=== PATIENT | female | born 1990 | race Two or more races ===

== ENCOUNTER 2024-06-05 19:27 | Emergency (ER) | payer OTHER ==
[~2024-06-05] VITALS: Ht 157.5 cm; Wt 77.6 kg
[2024-06-05] MEDS ORDERED: PRENA1 CHEW TA1.4 MG PO (19:42)
[2024-06-05] MEDS ORDERED: CHILDREN'S ASPI81 MG PO (19:42)
== END 2024-06-05 20:51 | disposition home or self-care (01) ==
LOC: ER 19:27
DX: O20.8 Other hemorrhage in early pregnancy (principal); Z3A.12 12 weeks gestation of pregnancy

== ENCOUNTER 2024-06-09 18:58 | Emergency (ER) | payer OTHER ==
[~2024-06-09] VITALS: Ht 157.5 cm; Wt 77.6 kg
[~2024-06-09 18:58] MED LIST: CHILDREN'S ASPI81 MG PO; PRENA1 CHEW TA1.4 MG PO
[2024-06-09 19:55] LABS: HEMATOCRIT 33.8 % (36.0-45.00); HEMOGLOBIN 11.7 g/dL (12.0-15.00); MEAN CELL VOLUME 85.7 fL (80.00-100.00); MEAN CORPUSCULAR HEMOGLOBIN 29.8 pg (27.00-32.0); MEAN CORPUSCULAR HGB CONC 34.7 g/dl (32.0-36.0); PLATELET COUNT 316 K/uL (150-450); RED BLOOD COUNT 3.94 M/uL (4.00-6.00); RED CELL DISTRIBUTION WIDTH 13.8 % (11.5-14.5)
[2024-06-09 21:09] LABS: URINE APPEARANCE Clear; URINE BILIRRUBIN Negative (NEGATIVE); URINE BLOOD Large; URINE COLOR Yellow; URINE GLUCOSE Negative (NEGATIVE); URINE KETONE Negative (NEGATIVE); URINE LEUKOCYTE Moderate; URINE NITRATE Negative; URINE PROTEIN Negative (NEGATIVE); URINE UROBILINOGEN 0.2 E.U./dl
[2024-06-09 21:13] LABS: URINE BACTERIA 1114.9 uL (0.0-1933); URINE EPITHELIAL CELLS 26.7 uL (0.0-38.8); URINE RBC 2.1 uL (0.0-20.8); URINE WBC 183.6 uL (0.0-23.2)
== END 2024-06-09 21:45 | disposition home or self-care (01) ==
LOC: ER 18:58
PROVIDERS: General Practice
DX: O20.8 Other hemorrhage in early pregnancy (principal); Z3A.13 13 weeks gestation of pregnancy

== ENCOUNTER 2024-07-01 08:31 | Inpatient (IN) | payer OTHER ==
[~2024-07-01] VITALS: Ht 157.5 cm; Wt 77.6 kg
[~2024-07-01 08:31] MED LIST changes: -PROMETRIUM200 MG VAG; -TYLENOL EXTRA500 MG PO; -TYLENOL325 MG PO
[2024-07-01 08:39] VITALS: BP 109/74
[2024-07-01] MEDS ORDERED: MAGNESIUM SULFATE IN WATER 4 GM/100 ML PIGGYBACK IV ONE (09:09)
[2024-07-01] MEDS ORDERED: MAGNESIUM SULFATE IN WATER 0.04 GM/ML IV.SOLN IV ONE (09:10)
[2024-07-01] MEDS ORDERED: CEFOXITIN SODIUM 2,000 MG VIAL IV ONE (09:11)
[2024-07-01 09:27] LABS: HEMATOCRIT 32.7 % (36.0-45.00); HEMOGLOBIN 11.2 g/dL (12.0-15.00); MEAN CELL VOLUME 84.6 fL (80.00-100.00); MEAN CORPUSCULAR HEMOGLOBIN 29.1 pg (27.00-32.0); MEAN CORPUSCULAR HGB CONC 34.4 g/dl (32.0-36.0); PLATELET COUNT 382 K/uL (150-450); RED BLOOD COUNT 3.86 M/uL (4.00-6.00); RED CELL DISTRIBUTION WIDTH 13.7 % (11.5-14.5)
[2024-07-01] MEDS ORDERED: PROMETRIUM200 MG VAG (09:32)
[2024-07-01] MEDS ORDERED: TYLENOL325 MG PO (09:33)
[2024-07-01] MEDS ORDERED: TYLENOL EXTRA500 MG PO (09:35)
[2024-07-01] MEDS ORDERED: CEFOXITIN SODIUM 2,000 MG VIAL IV SCH (09:41)
[2024-07-01] MEDS ORDERED: RINGERS SOLUTION,LACTATED 1,000 ML IV SCH (09:45)
[2024-07-01] MEDS ORDERED: MAGNESIUM SULFATE IN WATER 500 ML IV SCH (09:45)
[2024-07-01] MEDS ORDERED: MAGNESIUM SULFATE IN WATER 100 ML IV SCH (09:45)
[2024-07-01 10:09] LABS: INR 0.99; PARTIAL THROMBOPLASTIN TIME 27.6 SECONDS (22.0-34.0); PROTHROMBIN TIME 10.8 SECONDS (9.0-11.5)
[2024-07-01 10:20] LABS: ALBUMIN 2.8 gm/dL (3.4-5.0); BILIRUBIN TOTAL 0.27 mg/dL (0.3-1.2); CALCIUM 8.9 mg/dL (8.5-10.1); CREATININE SERUM 0.44 mg/dL (0.55-1.02); GFR 163.68; GLOBULINA 4.3 G/DL (2.4-3.5); POTASSIUM 4.26 mEq/L (3.5-5.1); TOTAL PROTEIN 7.1 gm/dL (6.4-8.2)
[2024-07-01 11:45] VITALS: BP 112/69; O2SAT 97
[2024-07-01 16:15] VITALS: BP 99/66
[2024-07-01] MEDS ORDERED: ACETAMINOPHEN 500 MG GEL..CAP PO PRN (19:00)
[2024-07-01 19:47] VITALS: BP 98/69
[2024-07-01 23:56] VITALS: BP 106/70
[2024-07-02 04:18] VITALS: BP 96/62
[2024-07-02 07:38] VITALS: BP 103/66
[2024-07-02 12:17] VITALS: BP 102/70
[2024-07-02 15:31] VITALS: BP 99/66
[2024-07-02] MEDS ORDERED: NIFEDIPINE 30 MG TAB.SA.OSM PO ONE (16:00)
[2024-07-02 16:30] VITALS: BP 117/78
[2024-07-02] MEDS ORDERED: TERBUTALINE SULFATE 1 MG/ML AMPUL SUBCUTANEO ONE (19:30)
[2024-07-02] MEDS ORDERED: MAGNESIUM SULFATE IN WATER 0.04 GM/ML IV.SOLN IV SCH (20:00)
[2024-07-02] MEDS ORDERED: INDOMETHACIN 50 MG CAPSULE PO ONE ×2 (20:07→20:30)
[2024-07-02] MEDS ORDERED: MAGNESIUM SULFATE IN WATER 4 GM/100 ML PIGGYBACK IV ONE (20:08)
[2024-07-02] MEDS ORDERED: MAGNESIUM SULFATE IN WATER 100 ML IV ONE (20:30)
[2024-07-02] MEDS ORDERED: MORPHINE SULFATE 4 MG/ML VIAL IV ONE (21:00)
[2024-07-02 21:38] LABS: HEMATOCRIT 33.4 % (36.0-45.00); HEMOGLOBIN 11.1 g/dL (12.0-15.00); MEAN CELL VOLUME 86.6 fL (80.00-100.00); MEAN CORPUSCULAR HEMOGLOBIN 28.7 pg (27.00-32.0); MEAN CORPUSCULAR HGB CONC 33.2 g/dl (32.0-36.0); PLATELET COUNT 405 K/uL (150-450); RED BLOOD COUNT 3.86 M/uL (4.00-6.00); RED CELL DISTRIBUTION WIDTH 13.7 % (11.5-14.5)
[2024-07-02 22:07] LABS: FIBRINOGEN 621 mg/dL (187.0-446.0); INR < 0.93; PARTIAL THROMBOPLASTIN TIME 27.7 SECONDS (22.0-34.0); PROTHROMBIN TIME 10.2 SECONDS (9.0-11.5)
[2024-07-02 22:17] LABS: ALBUMIN 2.9 gm/dL (3.4-5.0); BILIRUBIN TOTAL 0.28 mg/dL (0.3-1.2); CALCIUM 8.3 mg/dL (8.5-10.1); CREATININE SERUM 1.14 mg/dL (0.55-1.02); GFR 54.56; GLOBULINA 4.1 G/DL (2.4-3.5); POTASSIUM 4.36 mEq/L (3.5-5.1)
[2024-07-02] MEDS ORDERED: MORPHINE SULFATE 4 MG/ML VIAL IV PRN (23:15)
[2024-07-02 23:20] VITALS: BP 101/69
[2024-07-03 03:50] VITALS: BP 98/65
[2024-07-03 07:16] VITALS: BP 98/66
[2024-07-03] MEDS ORDERED: MAGNESIUM SULFATE IN WATER 0.04 GM/ML IV.SOLN IV ONE ×2 (07:23→22:41)
[2024-07-03] MEDS ORDERED: NIFEDIPINE 30 MG TAB.SA.OSM PO SCH (09:00)
[2024-07-03 13:41] VITALS: BP 98/64
[2024-07-03 14:07] LABS: HEMATOCRIT 33.1 % (36.0-45.00); HEMOGLOBIN 11.4 g/dL (12.0-15.00); MEAN CELL VOLUME 85.8 fL (80.00-100.00); MEAN CORPUSCULAR HEMOGLOBIN 29.6 pg (27.00-32.0); MEAN CORPUSCULAR HGB CONC 34.5 g/dl (32.0-36.0); PLATELET COUNT 420 K/uL (150-450); RED BLOOD COUNT 3.86 M/uL (4.00-6.00); RED CELL DISTRIBUTION WIDTH 13.1 % (11.5-14.5)
[2024-07-03 14:13] LABS: PH,URINE 6.5 (5.0-8.0); URINE APPEARANCE Clear; URINE BILIRRUBIN Negative (NEGATIVE); URINE BLOOD Negative; URINE COLOR Yellow; URINE GLUCOSE Negative (NEGATIVE); URINE KETONE Negative (NEGATIVE); URINE LEUKOCYTE Negative; URINE NITRATE Negative; URINE PROTEIN Negative (NEGATIVE); URINE UROBILINOGEN 0.2 E.U./dl
[2024-07-03 14:16] LABS: URINE BACTERIA 13.8 uL (0.0-1933); URINE EPITHELIAL CELLS 3.8 uL (0.0-38.8)
[2024-07-03 14:22] LABS: CREATININE URINE RANDOM 62.1 MG/DL (30-125)
[2024-07-03 14:25] LABS: URINE RBC 1.2 uL (0.0-20.8)
[2024-07-03 14:31] LABS: BILIRUBIN TOTAL 0.26 mg/dL (0.3-1.2); CALCIUM 7.8 mg/dL (8.5-10.1); CREATININE SERUM 0.49 mg/dL (0.55-1.02); GFR 144.56; GLOBULINA 4.3 G/DL (2.4-3.5); POTASSIUM 4.24 mEq/L (3.5-5.1); TOTAL PROTEIN 7.3 gm/dL (6.4-8.2)
[2024-07-03 15:22] VITALS: BP 118/81
[2024-07-03 18:54] VITALS: BP 101/68
[2024-07-03] MEDS ORDERED: MAGNESIUM SULFATE IN WATER 500 ML IV SCH ×2 (20:00→23:15)
[2024-07-03 23:37] VITALS: BP 105/71
[2024-07-04 01:10] VITALS: BP 112/72
[2024-07-04] MEDS ORDERED: INDOMETHACIN 25 MG CAPSULE PO ONE ×2 (02:44→03:00)
[2024-07-04 02:49] VITALS: BP 126/81
[2024-07-04 06:12] VITALS: BP 102/65; O2SAT 96
[2024-07-04 11:15] VITALS: BP 108/72; O2SAT 96
[2024-07-04 11:25] LABS: HEMATOCRIT 33.1 % (36.0-45.00); HEMOGLOBIN 11.2 g/dL (12.0-15.00); MEAN CELL VOLUME 85.5 fL (80.00-100.00); MEAN CORPUSCULAR HGB CONC 33.9 g/dl (32.0-36.0); PLATELET COUNT 413 K/uL (150-450); RED BLOOD COUNT 3.87 M/uL (4.00-6.00); RED CELL DISTRIBUTION WIDTH 13.5 % (11.5-14.5)
[2024-07-04 11:48] LABS: INR < 0.93; PARTIAL THROMBOPLASTIN TIME 26.7 SECONDS (22.0-34.0); PROTHROMBIN TIME 10.2 SECONDS (9.0-11.5)
[2024-07-04 11:52] LABS: ALBUMIN 2.9 gm/dL (3.4-5.0); BILIRUBIN TOTAL 0.28 mg/dL (0.3-1.2); CALCIUM 7.7 mg/dL (8.5-10.1); CREATININE SERUM 0.54 mg/dL (0.55-1.02); GFR 129.23; GLOBULINA 4.2 G/DL (2.4-3.5); POTASSIUM 3.39 mEq/L (3.5-5.1); TOTAL PROTEIN 7.1 gm/dL (6.4-8.2)
[2024-07-04 16:00] VITALS: BP 101/59
[2024-07-04 23:31] VITALS: BP 109/66
[2024-07-05] MEDS ORDERED: OXYTOCIN 20 UNITS/1000ML RL PIGGYBAG IV ONE ×2 (01:13→01:16)
[2024-07-05] MEDS ORDERED: METHYLERGONOVINE MALEATE 0.2 MG/ML AMPUL ONE (01:14)
[2024-07-05 01:39] VITALS: BP 117/76
[2024-07-05] MEDS ORDERED: OxyCODONE HCL/APAP UD (PERCOCET) PO PRN (01:45)
[2024-07-05] MEDS ORDERED: CHLORHEXIDINE GLUCONATE 120 ML BOTTLE TP SCH (01:45)
[2024-07-05] MEDS ORDERED: IBUprofen 400 MG TABLET PO PRN (01:45)
[2024-07-05] MEDS ORDERED: METHYLERGONOVINE MALEATE 0.2 MG/ML AMPUL IM STA (02:25)
[2024-07-05] MEDS ORDERED: OXYTOCIN 20 UNITS/1000ML RL PIGGYBAG IV SCH (02:30)
[2024-07-05 02:47] VITALS: BP 112/66
[2024-07-05] MEDS ORDERED: hydrOXYzine PAMOATE 25 MG CAPSULE PO ONE (03:45)
[2024-07-05 03:49] VITALS: BP 99/67
[2024-07-05 08:53] VITALS: BP 106/71
== END 2024-07-05 12:07 | disposition home or self-care (01) | DRG 768 ==
LOC: LDR 08:31 → OB/GYN 07-02 10:33
PROVIDERS: Obstetrics & Gynecology; Obstetrics & Gynecology Gynecology; ADMIT Obstetrics & Gynecology Maternal & Fetal Medicine; ATTEND Obstetrics & Gynecology Maternal & Fetal Medicine
PROC: BY4CZZZ Ultrasonography of Second Trimester, Single Fetus (ICD-10-PCS; 2024-07-01)
PROC: BU4CZZZ Ultrasonography of Uterus and Ovaries (ICD-10-PCS; 2024-07-01)
PROC: 4A1HXCZ Monitoring of Products of Conception, Cardiac Rate, External Approach (ICD-10-PCS; 2024-07-01)
PROC: 10E0XZZ Delivery of Products of Conception, External Approach (ICD-10-PCS; principal; 2024-07-05)
PROC: 0UCC7ZZ Extirpation of Matter from Cervix, Via Natural or Artificial Opening (ICD-10-PCS; 2024-07-05)
PROC: 3E033VJ Introduction of Other Hormone into Peripheral Vein, Percutaneous Approach (ICD-10-PCS; 2024-07-05)
DX: O41.1220 Chorioamnionitis, second trimester, not applicable or unspecified (principal); Z37.1 Single stillbirth; O34.32 Maternal care for cervical incompetence, second trimester; O46.8X2 Other antepartum hemorrhage, second trimester; O26.852 Spotting complicating pregnancy, second trimester; O26.842 Uterine size-date discrepancy, second trimester; Z3A.15 15 weeks gestation of pregnancy; Z20.822 Contact with and (suspected) exposure to COVID-19

== ENCOUNTER → 2024-07-01 | Emergency (ER) | payer OTHER ==
[~2024-07-01] VITALS: Ht 157.5 cm; Wt 77.6 kg
[~2024-07-01] MED LIST changes: +PROMETRIUM200 MG VAG; +TYLENOL EXTRA500 MG PO; +TYLENOL325 MG PO
== END | disposition still patient (30) ==
LOC: ER 07:56
DX: O20.9 Hemorrhage in early pregnancy, unspecified (principal); O26.892 Other specified pregnancy related conditions, second trimester; R10.2 Pelvic and perineal pain; Z3A.16 16 weeks gestation of pregnancy

== ENCOUNTER → 2025-03-13 17:33 | Outpatient (CLI) | payer OTHER ==
[~2025-03-13 17:33] MED LIST changes: +PROMETRIUM200 MG VAG; +TYLENOL EXTRA500 MG PO; +TYLENOL325 MG PO
== END | disposition home or self-care (01) ==
LOC: PRENATAL 17:33
PROVIDERS: ATTEND Obstetrics & Gynecology Maternal & Fetal Medicine
DX: O36.80X0 Pregnancy with inconclusive fetal viability, not applicable or unspecified (principal); O09.529 Supervision of elderly multigravida, unspecified trimester; O09.819 Supervision of pregnancy resulting from assisted reproductive technology, unspecified trimester; O34.30 Maternal care for cervical incompetence, unspecified trimester; Z3A.09 9 weeks gestation of pregnancy

== ENCOUNTER 2025-03-23 09:29 | Outpatient (CLI) | payer OTHER ==
[~2025-03-23 09:29] MED LIST changes: +PRENATAL TABLE1 EAC1 PO
== END 2025-03-23 09:30 | disposition home or self-care (01) ==
LOC: PRENATAL 09:29
PROVIDERS: ATTEND Obstetrics & Gynecology Maternal & Fetal Medicine
DX: Z76.1 Encounter for health supervision and care of foundling (principal)

== ENCOUNTER → 2025-04-04 12:50 | Outpatient (CLI) | payer OTHER | END | disposition home or self-care (01) | LOC: PRENATAL 12:50 | PROVIDERS: ATTEND Obstetrics & Gynecology Maternal & Fetal Medicine | DX: O36.80X0 Pregnancy with inconclusive fetal viability, not applicable or unspecified (principal); O09.529 Supervision of elderly multigravida, unspecified trimester; O09.819 Supervision of pregnancy resulting from assisted reproductive technology, unspecified trimester; O34.30 Maternal care for cervical incompetence, unspecified trimester; O44.00 Complete placenta previa NOS or without hemorrhage, unspecified trimester; Z3A.12 12 weeks gestation of pregnancy ==

== ENCOUNTER 2025-05-03 09:27 | Outpatient (CLI) | payer OTHER | END 2025-05-03 09:28 | disposition home or self-care (01) | LOC: PRENATAL 09:27 | PROVIDERS: ATTEND Obstetrics & Gynecology Maternal & Fetal Medicine | DX: O26.849 Uterine size-date discrepancy, unspecified trimester (principal); O09.529 Supervision of elderly multigravida, unspecified trimester; O09.819 Supervision of pregnancy resulting from assisted reproductive technology, unspecified trimester; O34.30 Maternal care for cervical incompetence, unspecified trimester; O44.00 Complete placenta previa NOS or without hemorrhage, unspecified trimester; Z3A.16 16 weeks gestation of pregnancy ==

== ENCOUNTER 2025-06-02 12:34 | Outpatient (CLI) | payer OTHER | END 2025-06-02 12:35 | disposition home or self-care (01) | LOC: PRENATAL 12:34 | PROVIDERS: ATTEND Obstetrics & Gynecology Maternal & Fetal Medicine | DX: O44.00 Complete placenta previa NOS or without hemorrhage, unspecified trimester (principal); O09.819 Supervision of pregnancy resulting from assisted reproductive technology, unspecified trimester; O34.30 Maternal care for cervical incompetence, unspecified trimester; Z3A.21 21 weeks gestation of pregnancy ==

== ENCOUNTER 2025-06-21 08:17 | Outpatient (CLI) | payer OTHER | END 2025-06-21 08:18 | disposition home or self-care (01) | LOC: PRENATAL 08:17 | PROVIDERS: ATTEND Obstetrics & Gynecology Maternal & Fetal Medicine | DX: O26.849 Uterine size-date discrepancy, unspecified trimester (principal); O09.819 Supervision of pregnancy resulting from assisted reproductive technology, unspecified trimester; O34.30 Maternal care for cervical incompetence, unspecified trimester; O44.00 Complete placenta previa NOS or without hemorrhage, unspecified trimester; Z3A.23 23 weeks gestation of pregnancy ==

== ENCOUNTER 2025-07-25 11:05 | Outpatient (CLI) | payer OTHER | END 2025-07-25 11:06 | disposition home or self-care (01) | LOC: PRENATAL 11:05 | PROVIDERS: ATTEND Obstetrics & Gynecology Maternal & Fetal Medicine | DX: O26.849 Uterine size-date discrepancy, unspecified trimester (principal); O09.819 Supervision of pregnancy resulting from assisted reproductive technology, unspecified trimester; O34.30 Maternal care for cervical incompetence, unspecified trimester; O44.00 Complete placenta previa NOS or without hemorrhage, unspecified trimester; Z3A.28 28 weeks gestation of pregnancy ==

== ENCOUNTER 2025-08-18 11:37 | Outpatient (CLI) | payer OTHER ==
[~2025-08-18] VITALS: Ht 157.5 cm; Wt 85.7 kg
[2025-08-18 10:26] VITALS: BP 111/75
[2025-08-18 11:30] VITALS: BP 111/75
[2025-08-18] MEDS ORDERED: PRENATA CHEWAB1 EACH PO (11:49)
[2025-08-18] MEDS ORDERED: RINGERS SOLUTION,LACTATED 1,000 ML IV SCH (12:00)
[2025-08-18 14:33] VITALS: BP 111/75
== END 2025-08-18 14:36 | disposition home or self-care (01) ==
LOC: OBS/DEL 11:37
PROVIDERS: ATTEND Student in an Organized Health Care Education/Training Program
DX: O36.8130 Decreased fetal movements, third trimester, not applicable or unspecified (principal); O26.843 Uterine size-date discrepancy, third trimester; O09.813 Supervision of pregnancy resulting from assisted reproductive technology, third trimester; O32.9XX0 Maternal care for malpresentation of fetus, unspecified, not applicable or unspecified; Z3A.31 31 weeks gestation of pregnancy

== ENCOUNTER 2025-09-15 08:17 | Outpatient (CLI) | payer OTHER ==
[~2025-09-15 08:17] MED LIST changes: +PRENATA CHEWAB1 EACH PO
== END 2025-09-15 08:18 | disposition home or self-care (01) ==
LOC: PRENATAL 08:17
PROVIDERS: ATTEND Obstetrics & Gynecology Maternal & Fetal Medicine
DX: O26.843 Uterine size-date discrepancy, third trimester (principal); O36.8130 Decreased fetal movements, third trimester, not applicable or unspecified; O09.813 Supervision of pregnancy resulting from assisted reproductive technology, third trimester; Z3A.34 34 weeks gestation of pregnancy

== ENCOUNTER 2025-09-20 13:53 | Outpatient (CLI) | payer OTHER | END 2025-09-20 14:57 | disposition home or self-care (01) | LOC: NST 13:53 | PROVIDERS: ATTEND Student in an Organized Health Care Education/Training Program | DX: Z34.83 Encounter for supervision of other normal pregnancy, third trimester (principal) ==

== ENCOUNTER 2025-10-06 14:00 | Inpatient (IN) | payer OTHER ==
[~2025-10-06] VITALS: Ht 157.5 cm; Wt 3.2 kg
[2025-10-06 15:50] LABS: BASO % 0.2 % (0.1-1.2); EOS # 0.06 (0.04-0.54); EOS % 0.7 % (0.7-7.0); LYMPH # 1.43 (1.18-3.74); LYMPH % 17.3 % (19.3-53.1); MEAN PLATELET VOLUME 9.80 fl (9.4-12.4); MONO # 0.65 (0.24-0.82); MONO % 7.9 % (4.7-12.5); NEUT # 6.05 (1.56-6.13); NEUT % 73.4 % (34.0-71.1); RED CELL DISTRIBUTION WIDTH 14.2 % (11.6-14.4)
[2025-10-06 15:53] LABS: URINE APPEARANCE Clear; URINE BILIRRUBIN Negative (NEGATIVE); URINE BLOOD Small; URINE COLOR Yellow; URINE GLUCOSE Negative (NEGATIVE); URINE KETONE Negative (NEGATIVE); URINE LEUKOCYTE Small; URINE NITRATE Negative; URINE PROTEIN Trace (NEGATIVE); URINE UROBILINOGEN 0.2 E.U./dl
[2025-10-06 15:54] LABS: URINE BACTERIA 1282.2 uL (0.0-1933); URINE EPITHELIAL CELLS 16.5 uL (0.0-38.8); URINE RBC 3.3 uL (0.0-20.8); URINE WBC 46.1 uL (0.0-23.2)
[2025-10-06 16:12] LABS: INR 0.96
[2025-10-06 16:14] LABS: URINE CAST 0.00 uL (0.0-1.40)
[2025-10-06 16:28] LABS: ALT/SGPT 97.0 U/L (12-78); AST/SGOT 32.0 U/L (15-37); BILIRUBIN TOTAL 0.24 mg/dL (0.3-1.2); BUN CREA RATIO 13.0 (7.0-25.0); CREATININE SERUM 0.55 mg/dL (0.55-1.02); GFR 125.78; GLOBULINA 4.4 G/DL (2.4-3.5); GLUCOSE FASTING 82.0 mg/dL (65-100); OSMOLALITY SERUM 276.0 MOSM/KG (275-295)
[2025-10-12 07:00] VITALS: BP 112/69
[2025-10-12] MEDS ORDERED: RINGERS SOLUTION,LACTATED 1,000 ML IV SCH ×2 (07:45→23:15)
[2025-10-12] MEDS ORDERED: OXYTOCIN 500 ML IV SCH (08:00)
[2025-10-12] MEDS ORDERED: PRENATA CHEWAB1 EACH PO (08:13)
[2025-10-12] MEDS ORDERED: OSEL75CA PO (08:15)
[2025-10-12 08:16] LABS: BASO % 0.6 % (0.1-1.2); EOS # 0.06 (0.04-0.54); EOS % 0.9 % (0.7-7.0); LYMPH # 1.60 (1.18-3.74); LYMPH % 24.1 % (19.3-53.1); MEAN PLATELET VOLUME 10.10 fl (9.4-12.4); MONO # 0.55 (0.24-0.82); MONO % 8.3 % (4.7-12.5); NEUT # 4.35 (1.56-6.13); NEUT % 65.5 % (34.0-71.1); RED CELL DISTRIBUTION WIDTH 14.4 % (11.6-14.4)
[2025-10-12] MEDS ORDERED: TYLENOL325 MG (08:16)
[2025-10-12 08:17] LABS: URINE APPEARANCE Clear; URINE BILIRRUBIN Negative (NEGATIVE); URINE BLOOD Negative; URINE COLOR Yellow; URINE GLUCOSE Negative (NEGATIVE); URINE KETONE Negative (NEGATIVE); URINE LEUKOCYTE Trace; URINE NITRATE Negative; URINE PROTEIN Negative (NEGATIVE); URINE UROBILINOGEN 0.2 E.U./dl
[2025-10-12 08:20] LABS: URINE EPITHELIAL CELLS 35.5 uL (0.0-38.8); URINE RBC 3.2 uL (0.0-20.8); URINE WBC 59.9 uL (0.0-23.2)
[2025-10-12 08:37] LABS: TYPE CELLS SQUAMOUS; URINE CAST 0.56 uL (0.0-1.40)
[2025-10-12 08:54] LABS: INR 0.94
[2025-10-12 09:04] LABS: ALT/SGPT 41.0 U/L (12-78); AST/SGOT 21.0 U/L (15-37); BILIRUBIN TOTAL 0.2 mg/dL (0.3-1.2); BUN CREA RATIO 14.0 (7.0-25.0); CREATININE SERUM 0.51 mg/dL (0.55-1.02); GFR 137.23; GLOBULINA 4.0 G/DL (2.4-3.5); GLUCOSE FASTING 91.0 mg/dL (65-100); OSMOLALITY SERUM 275.0 MOSM/KG (275-295)
[2025-10-12 12:55] VITALS: BP 120/82
[2025-10-12 15:30] VITALS: BP 123/81
[2025-10-12] MEDS ORDERED: OXYTOCIN 10 UNITS/ML VIAL ONE ×2 (21:48→23:55)
[2025-10-12] MEDS ORDERED: ERYTHROMYCIN BASE OPHT 1GM EACH TUBE OP ONE (21:48)
[2025-10-12] MEDS ORDERED: CEFAZOLIN SODIUM 1,000 MG VIAL IV ONE (22:00)
[2025-10-12] MEDS ORDERED: KETOROLAC TROMETHAMINE 30 MG VIAL IV SCH (23:11)
[2025-10-12] MEDS ORDERED: FAMOTIDINE/PF 20 MG/2 ML VIAL IV SCH (23:12)
[2025-10-12] MEDS ORDERED: MORPHINE SULFATE 4 MG/ML VIAL IV PRN (23:15)
[2025-10-12] MEDS ORDERED: CHLORHEXIDINE GLUCONATE 120 ML BOTTLE TP SCH (23:15)
[2025-10-12] MEDS ORDERED: OXYTOCIN 1,000 ML IV SCH (23:15)
[2025-10-12] MEDS ORDERED: ONDANSETRON HCL 2 MG/ML VIAL IV PRN (23:15)
[2025-10-13 02:22] VITALS: BP 101/67
[2025-10-13 05:10] LABS: BASO % 0.2 % (0.1-1.2); EOS # 0.00 (0.04-0.54); EOS % 0.0 % (0.7-7.0); LYMPH # 1.37 (1.18-3.74); LYMPH % 10.9 % (19.3-53.1); MEAN PLATELET VOLUME 10.30 fl (9.4-12.4); MONO # 0.84 (0.24-0.82); MONO % 6.7 % (4.7-12.5); NEUT # 10.25 (1.56-6.13); NEUT % 81.7 % (34.0-71.1); RED CELL DISTRIBUTION WIDTH 14.5 % (11.6-14.4)
[2025-10-13 08:00] VITALS: BP 104/69
[2025-10-13] MEDS ORDERED: DOCUSATE SODIUM 100MG CAP PO SCH (09:00)
[2025-10-13] MEDS ORDERED: ACETAMINOPHEN 500 MG GEL..CAP PO PRN (09:00)
[2025-10-13] MEDS ORDERED: SIMETHICONE 125 MG CAPSULE PO SCH (09:00)
[2025-10-13] MEDS ORDERED: OxyCODONE HCL 5 MG TABLET (ROXICODONE) PO PRN (14:00)
[2025-10-13] MEDS ORDERED: CEFTRIAXONE SODIUM 1,000 MG VIAL IV NR (17:00)
[2025-10-13] MEDS ORDERED: KETOROLAC TROMETHAMINE 10 MG TABLET PO PRN (18:00)
[2025-10-13 19:22] VITALS: BP 110/74
[2025-10-14] VITALS: BP 122/82
[2025-10-14 08:17] VITALS: BP 118/80
[2025-10-14 16:00] VITALS: BP 125/83
== END 2025-10-14 17:48 | disposition home or self-care (01) | DRG 788 ==
LOC: OB/GYN 10-12 07:26 → LDR 10-12 07:26 → O/R 10-12 22:27 → OB/GYN 10-12 23:33
PROVIDERS: General Practice; ADMIT Student in an Organized Health Care Education/Training Program; ATTEND Student in an Organized Health Care Education/Training Program
PROC: 4A1HXCZ Monitoring of Products of Conception, Cardiac Rate, External Approach (ICD-10-PCS; 2025-10-12)
PROC: 10D00Z1 Extraction of Products of Conception, Low, Open Approach (ICD-10-PCS; principal; 2025-10-12 23:30)
DX: O82 Encounter for cesarean delivery without indication (principal); Z3A.39 39 weeks gestation of pregnancy; Z37.0 Single live birth